=== PATIENT | male | born 1950 | race Caucasian/White ===

== ENCOUNTER 2016-05-16 16:08 | Inpatient (IN) | payer BC ==
--- NOTE | ~2016-05-16 | DS ---
Discharge Summary [facility] [address] [place]. [address] NAME: VERONICA GALEAS : 54 STATUS : DIS IN PAT#: [id number] AGE: 66 ADM/REG DATE : 05/16/16 MR#: [id number] REPORT SERV DATE: 05/24/16 DICTATED BY: ELENI JURADO II DATE: 05/23/16 REPORT STATUS : Draft TRANSCRIBED BY: MODL DATE: 05/23/16 ADMISSION DATE: 05/16/2016 DISCHARGE DATE: 05/23/2016 DISCHARGE DIAGNOSES: 1. Fever with elevated liver function tests, likely cholangitis. 2. Stricture of the choledochojejunostomy site, status post percutaneous transhepatic cholangiography. 3. History of pancreatic cancer, status post Whipple. 4. History of gastroesophageal reflux disease. CONSULTATIONS: Dr. Cummins with GI, and Dr. Kasper with [facility]. PROCEDURES: Percutaneous transhepatic cholangiogram with internal/external biliary drain placement performed by Dr. Frias. BRIEF HPI: The patient is a 66-year-old male with the above history, presented to [facility] due to fever and pruritus. For detailed history and physical examination, please see Renetta Larson's note from 05/16/2016. HOSPITAL COURSE: On admission, the patient had a mildly elevated procalcitonin of 0.7 with a normal white count; however, his T-bili was 5.5, alkaline phosphatase 531, ALT 201, and AST 86. He had complained of an episode of fever of 102.3 prior to admission, but no fever was observed during his hospitalization. He was started on Zosyn. GI was consulted. CT of the patient's abdomen showed minimal fullness of the biliary tree with gas seen in the intrahepatic bile ducts on the left and within the common bile duct, likely related to the patient's postsurgical anatomy. Otherwise, stable [id number] left hydronephrosis secondary to chronic left UPJ obstruction, and stable nonobstructive nephrolithiasis of the lower pole of the left kidney. MRCP was done, which showed mild dilatation of the intrahepatic biliary tree and the upper common bile duct. There is signal deficit below this in the common duct, likely due to the air in the common duct seen on recent exam. The choledochojejunostomy site is not optimally evaluated. Nondilated pancreatic duct with known stent in the pancreatic duct extending into the jejunum across the pancreaticojejunostomy site. Dr. Praneeth Cummins performed an upper endoscopy with removal of the patient's jejunal stents prior to PTC. The PTC showed tight stricturing of the choledochojejunostomy site just below the proximal common duct as described with only tiny amount of contrast tracking into the jejunum. After successfully crossing the stenotic choledochojejunostomy site with the micro catheter, subsequent 4-Welsh catheter, a 10- Welsh internal-external biliary drain was placed within the distal loop formed in the jejunum. The patient's alkaline phosphatase steadily trended down to 244. AST and ALT had trended down before briefly trending up after the patient's stent was removed and then after the PTC, trended back down to 191, similar trend with AST. The patient experienced a significant amount of pain and muscle spasm at the insertion site; however, no abdominal pain. At this point, he is stable for discharge and Dr. Cummins will follow him up in two months. We will continue antibiotics for a total of 14 days. Currently, he has had 7 days of Zosyn and will continue oral Levaquin as an outpatient. Discharge Summary [address] [address] NAME: VERONICA GALEAS : 54 STATUS : DIS IN PAT#: [id number] AGE: 66 ADM/REG DATE : 05/16/16 MR#: [id number] REPORT SERV DATE: 05/24/16 DICTATED BY: ELENI JURADO II DATE: 05/23/16 REPORT STATUS : Draft TRANSCRIBED BY: KENYATTA DATE: 05/23/16 DISCHARGE MEDICATIONS: 1. Welchol 3.75 g p.o. daily. 2. Protonix 40 mg p.o. daily. 3. Levaquin 750 mg p.o. daily x7 days. 4. Creon 53198 units p.o. at meals and p.r.n. large fatty meals. 5. Benadryl p.r.n. 6. Advil p.r.n. 7. Atarax 25 mg p.o. t.i.d. p.r.n. pruritus. DISCHARGE INSTRUCTIONS: The patient will be discharged home. Follow up with Dr. Cummins in two weeks. JACKIE/DANIELLEL Eleni Jurado II, MD / [id number] CC: MD Jay Avila II, M.D.
--- NOTE | ~2016-05-16 | CN ---
Consultation Report [facility] [address] [place]. [address] NAME: VERONICA GALEAS : 54 STATUS : ADM IN [facility]#: [id number] AGE: 66 ADM/REG DATE : 05/16/16 MR#: [id number] REPORT SERV DATE: 05/17/16 DICTATED BY: BILL AZAR DATE: 05/17/16 REPORT STATUS : Draft TRANSCRIBED BY: MODNneka DATE: 05/17/16 GI CONSULTATION DATE OF CONSULTATION: 05/17/2016 REASON FOR CONSULTATION: Regarding elevated liver tests. HISTORY OF PRESENT ILLNESS: This is a pleasant 66-year-old man, who is status post Whipple procedure in 2016 for pancreatic cancer. He has been undergoing recent chemotherapy and has had elevated liver tests in the past one month. In addition, he has had intermittent spiking fevers up to 102 Fahrenheit. He was given antibiotics with resolution. He has had no abdominal pain. Stools have been normal, although lilo collared. No GERD or dysphagia. He has seen Dr. Cummins in the past for metal stent to common bile duct, which was placed preoperatively. He does not use significant amounts of alcohol, very occasional drinker, although he did drink heavily in the past for about five years, thirteen years ago, but not much alcohol since. No new medications other than chemotherapy. ALLERGIES: DEMEROL. MEDICATIONS: Xeloda, Welchol, Benadryl, Atarax, Advil, Levaquin, Creon, Protonix, Gemzar. PAST MEDICAL HISTORY: Pancreatic cancer, status post Whipple procedure as above, GERD, hernia repair, left knee surgery x2 bilateral. SOCIAL HISTORY: Does not use alcohol or tobacco significantly. FAMILY HISTORY: Negative for GI malignancy. REVIEW OF SYSTEMS: A complete review of systems was obtained and negative except that noted in the history of present illness. PHYSICAL EXAMINATION: VITAL SIGNS: He is afebrile. Temperature is 98.0, pulse 58, respirations 16, blood pressure 102/59. HEENT: Sclerae anicteric. NECK: Supple without lymphadenopathy. Pharynx is pink without exudate. LUNGS: Clear to auscultation bilaterally. HEART: Regular rate and rhythm. S1, S2 are heard without rubs or gallops. ABDOMEN: Normal bowel sounds. Belly is soft, nontender, nondistended without hepatosplenomegaly. EXTREMITIES: No pedal edema or rash. Consultation Report [facility] [address] [place]. [address] NAME: VERONICA GALEAS : [birth year] STATUS : ADM IN [facility]#: [id number] AGE: 66 ADM/REG DATE : 05/16/16 MR#: [id number] REPORT SERV DATE: 05/17/16 DICTATED BY: BILL AZAR DATE: 05/17/16 REPORT STATUS : Draft TRANSCRIBED BY: MODL DATE: 05/17/16 NEUROLOGIC: Alert and oriented without focal deficit. Muscle exam is nontender. DATA: White blood cell count 2.8, hematocrit 32.8, MCV 92.7, platelets 146. BUN 12, creatinine 0.62. Bilirubin was initially 5.5, now 3.1. Alkaline phosphatase initially 531, now 427. ALT initially 201, now 148, AST initially 86 now 54. LDH is 185. CT scan shows a normal appearing pancreas with PD stent in place. Intrahepatic ducts are full. There is air within the biliary tree and a choledochojejunostomy is noted. IMPRESSION: 1. Elevated liver tests. Question intrinsic versus sludge/stones at the site of choledochojejunostomy. 2. Pancreatic cancer, status post Whipple procedure, currently receiving chemotherapy. RECOMMENDATIONS: 1. Check acute hepatitis panel. 2. Check MRCP. 3. If the above is negative, consider further serologic testing on liver. CC/KENYATTA Bill Azar M.D. / [id number] CC: MD Jay Max M.D. Gregory Olds, MD
--- NOTE | ~2016-05-16 | HP ---
History And Physical [facility] [id number] [place]. [address] NAME: VERONICA GALEAS : 54 STATUS : ADM IN [facility]#: [id number] AGE: 66 ADM/REG DATE : 05/16/16 MR#: [id number] REPORT SERV DATE: 05/16/16 DICTATED BY: SKYLER LARSON DATE: 05/16/16 REPORT STATUS : Draft TRANSCRIBED BY: MODNneka DATE: 05/16/16 DATE OF ADMISSION: 05/16/2016 CHIEF COMPLAINT: Fever and pruritus. HISTORY OF PRESENT ILLNESS: This patient is a 66-year-old patient who is a direct admit from Dr. Jain's office. The patient does present with a history of pancreatic cancer. He is under the care of Dr. Jain's of [facility]. He is currently under a clinical trial. Last chemotherapy on 05/13/2016. At that time, he received Gemzar and Xeloda. This patient reports a history of low-grade fevers ongoing for approximately three weeks. During that time, temperature ran from 99 to 100, had also noted elevated liver function tests. The patient states on 04/25/2016, he was given Levaquin for approximately days. He did complete the antibiotic during that time and ongoing. He has continued to run low-grade fevers. Today's temperature was 102 with rigors. The patient states that his weakness has come and gone during that time. He also denies fever, chills, nausea, vomiting, abdominal pain, or diarrhea. He does state though that within the past one to two days, he has had increased pruritus. He has stated that he is taking Benadryl, which is not relieving his symptoms. REVIEW OF SYSTEMS: Otherwise negative review of systems except what is listed above. PAST MEDICAL HISTORY: 1. Pancreatic cancer. 2. GERD. PAST SURGICAL HISTORY: 1. Hernia repair. 2. Left knee surgery x2. 3. Bilateral biliary sten, 10/2015. 4. Whipple's 11/2015. SOCIAL HISTORY: The patient is , one son. Continues to work full-time. Denies smoking, alcohol, or illicit drug use. ALLERGIES: NO KNOWN DRUG ALLERGIES. FAMILY HISTORY: Mother at age 60 of lung cancer. Father of lung cancer. HOME MEDICATIONS: 1. Xeloda 500 mg and 1500 mg p.o. twice daily. 2. Welchol 3.75 g pack p.o. daily. 3. Benadryl 25 mg one p.o. twice daily. 4. Hydralazine 25 mg one p.o. every eight hours. 5. Advil 200 mg and 400 mg p.o. twice daily. History And Physical [address] [address] NAME: VERONICA GALEAS : 54 STATUS : ADM IN [facility]#: [id number] AGE: 66 ADM/REG DATE : 05/16/16 MR#: [id number] REPORT SERV DATE: 05/16/16 DICTATED BY: SKYLER LARSON DATE: 05/16/16 REPORT STATUS : Draft TRANSCRIBED BY: KENYATTA DATE: 05/16/16 6. Levaquin 750 mg one p.o. daily to start today. 7. Creon 3000 units and 12,000 units p.o. with meals. 8. Protonix 40 mg one p.o. daily. 9. Gemzar 1 dose IV every two weeks. PHYSICAL EXAMINATION: VITAL SIGNS: To be obtained. GENERAL: This patient is alert and oriented, in no acute distress. NEUROLOGIC: The patient is alert and oriented x3. CHEST: Nontender to touch. NECK: No JVD. LUNGS: Clear bilateral. No wheezes, rales, or rhonchi. HEART: Rate and regular rhythm. No murmurs, rubs, or gallops. ABDOMEN: Soft, nontender to touch. Bowel sounds are active. EXTREMITIES : No cyanosis, no edema. LABORATORY DATA: Laboratory data obtained in Dr. Jain's office. WBC is 3.6, hemoglobin 12.3, hematocrit 35.5, platelet count is 119. Creatinine is 0.60, BUN is 13, potassium is 3.8. ALT is 233, AST is 134, and total bilirubin is 6.2. IMAGING: To be obtained. ASSESSMENT AND PLAN: 1. Fever of unknown origin. The patient reports temperature on and off for approximately three weeks. Temperature this a.m. was 102. The patient has been admitted to the hospital. We will obtain cultures and begin Zosyn. Antibiotic will be started. The patient will be started on Zosyn. Cultures and lab will be obtained. The patient will be started on Zosyn. 2. Possible partial obstruction. The patient has known pancreatic cancer. He has had stents in the past. We will have consult for Dr. Cummins to see for possible obstruction. 3. Pancreatic cancer. The patient is followed by Dr. Jain of [place]. We will consult him to see during his hospital stay. We will also obtain an updated CT chest, abdomen, and pelvis. 4. Pruritus, most likely due to elevated bilirubin. We will provide Benadryl and hydralazine p.r.n. as needed for the patient's symptoms. 5. The patient is a full code. 6. The patient will be followed by Dr. Todd Snow during his hospital stay. DICTATION ENDS HERE PRECIOUS/KENYATTA Skyler Larson NP / [id number] History And Physical [address] [address] NAME: VERONICA GALEAS : 54 STATUS : ADM IN [facility]#: [id number] AGE: 66 ADM/REG DATE : 05/16/16 MR#: [id number] REPORT SERV DATE: 05/16/16 DICTATED BY: SKYLER LARSON DATE: 05/16/16 REPORT STATUS : Draft TRANSCRIBED BY: KENYATTA DATE: 05/16/16 CC: MD Jay Max M.D.
--- NOTE | ~2016-05-16 | EGD ---
EGD REPORT [facility] [address] [place] [address] NAME: VERONICA GALEAS : 54 STATUS : ADM IN PAT#: [id number] AGE: 66 ADM/REG DATE : 05/16/16 MR#: [id number] REPORT SERV DATE: 05/20/16 DICTATED BY: CLAUDIA MCDONALD DATE: 05/20/16 REPORT STATUS : Draft TRANSCRIBED BY: [employer] DATE: 05/20/16 Endoscopy Center Patient Name: Veronica Galeas Date of : 1950 Attending MD: CLAUDIA MCDONALD, Procedure Date No Time: 05/20/2016 Procedure: Upper GI endoscopy Indications: Stent removal Referring MD: ELENA GRANDE Medicines: Monitored Anesthesia Care Complications: No immediate complications. Estimated blood loss: None. Procedure: Pre-Anesthesia Assessment: - ASA Grade Assessment: III - A patient with severe systemic disease. After obtaining informed consent, the endoscope was passed under direct vision. Throughout the procedure, the patient's blood pressure, pulse, and oxygen saturations were monitored continuously. The PCF [id number] was introduced through the mouth, and advanced to the afferent jejunal loop. The upper GI endoscopy was accomplished without difficulty. The patient tolerated the procedure well. Findings: The esophagus was normal. Evidence of a Billroth II (Whipple) anastomosis was found in the gastric antrum. The anastomosis was characterized by healthy appearing mucosa. A pancreatic stent was seen in the jejunum. Stent removal was accomplished with rat-toothed forceps. Verification of patient identification for the specimen was done. Exam of the jejunum was otherwise normal.Both limbs were evaluated. Impression: - Normal esophagus. - A Billroth II anastomosis was found, anastomosis characterized by healthy appearing mucosa. - Jejunal stents. Recommendation: - Return to previous diet. - Continue present medications. Procedure Code(s): --- Professional --- 44724, Esophagogastroduodenoscopy, flexible, transoral; with removal of foreign body Diagnosis Code(s): --- Professional --- EGD REPORT [address] [place] [place]. [address] NAME: VERONICA GALEAS : [birth year] STATUS : ADM IN [facility]#: [id number] AGE: 66 ADM/REG DATE : 05/16/16 MR#: [id number] REPORT SERV DATE: 05/20/16 DICTATED BY: CLAUDIA MCDONALD DATE: 05/20/16 REPORT STATUS : Draft TRANSCRIBED BY: [employer] DATE: 05/20/16 Z98.0, Intestinal bypass and anastomosis status Z46.59, Encounter for fitting and adjustment of other gastrointestinal appliance and device CPT copyright 2013 [employer]. All rights reserved. The codes documented in this report are preliminary and upon learning and development analyst review may be revised to meet current compliance requirements. CLAUDIA MCDONALD, 05/20/2016 1:34 PM Number of Addenda: 0 Note Initiated On: 05/20/2016 12:33 PM Scope Withdrawal Time 0 hours 0 minutes [address] [place] [address] [place] [address]
[~2016-05-16 16:08] MED LIST: ADVIL PO; ASABAYER PO; LUTEIN1 CAP PO; [UNRECOGNIZED DRUG - OTHER]; [UNRECOGNIZED DRUG - OTHER]
[2016-05-16] MEDS ORDERED: XELODA PO (17:05)
[2016-05-16] MEDS ORDERED: GEMZAR IV (17:06)
[2016-05-16] MEDS ORDERED: CREON DR 3,0001 EACH PO ×2 (17:07→17:08)
[2016-05-16] MEDS ORDERED: BEN25 PO (17:08)
[2016-05-16] MEDS ORDERED: PROTONIX PO (17:09)
[2016-05-16] MEDS ORDERED: ADVIL PO (17:09)
[2016-05-16] MEDS ORDERED: LEVAQUIN750 MG PO (17:10)
[2016-05-16] MEDS ORDERED: WELCHOL3.75 GM PO (17:11)
[2016-05-16] MEDS ORDERED: AT25 PO (17:11)
[2016-05-16 20:28] LABS: BASOPHILS 0.2 %; BASOPHILS ABSOLUTE 0.01 10/3/uL (0.0-0.16); EOSINOPHILS 0.5 %; EOSINOPHILS ABSOLUTE 0.03 10/3/uL (0.0-0.53); HEMOGLOBIN 12.4 g/dL (13.6-17.8); IMMATURE GRANULOCYTES 0.3 %; IMMATURE GRANULOCYTES ABSOLUTE 0.02 10/3/uL (0.0-0.11); LYMPHOCYTES ABSOLUTE 0.54 10/3/uL (0.67-4.30); MEAN CORPUS HGB CONC 34.1 g/dL (32.0-36.0); MEAN CORPUSCULAR HEMOGLOB 31.5 pg (26.0-34.0); MEAN CORPUSCULAR VOLUME 92.4 fL (80-100); MEAN PLATELET VOLUME 11.2 fL (9.2-13.0); MONOCYTES 1.7 %; NEUTROPHILS 88.3 %; NEUTROPHILS ABSOLUTE 5.31 10/3/uL (2.02-8.40); PLATELET COUNT 176 10/3/uL (150-400); RBC DISTRIBUTION WIDTH 16.2 % (12.0-16.0); RED CELL COUNT 3.94 10/6/uL (4.7-6.1)
[2016-05-16 20:36] LABS: HEMATOCRIT 36.4 % (40.0-51.0); MANUAL DIFF NO %
[2016-05-16 20:53] LABS: A/G RATIO 0.9 (0.7-1.9); ALBUMIN 3.3 G/DL (3.5-5.0); ALKALINE PHOSPHATASE 531 U/L (45-117); BUN (BLOOD UREA NITROGEN) 12 MG/DL (6-23); CALCIUM, SERUM 9.2 MG/DL (8.5-10.4); CHLORIDE, SERUM 107 MMOL/L (96-112); CO2 (CARBON DIOXIDE) 28 MMOL/L (24-34); CREATININE 0.67 MG/DL (0.70-1.30); GFR AFRICAN AMERICAN 118 ML/MIN (>=60); GFR NON AFRICAN AMERICAN 102 ML/MIN (>=60); GLOBULIN 3.5 G/DL (2.5-4.1); GLUCOSE, SERUM 111 MG/DL (60-99); PHOSPHORUS, SERUM 2.8 MG/DL (2.5-4.5); POTASSIUM, SERUM 3.7 MMOL/L (3.5-5.3); SGOT(AST) 86 U/L (5-40); SGPT(ALT) 201 U/L (5-65); SODIUM, SERUM 142 MMOL/L (135-148); TOTAL BILIRUBIN 5.5 MG/DL (0-1.2); TOTAL PROTEIN 6.8 G/DL (6.0-8.5)
[2016-05-17 08:29] LABS: HEMATOCRIT 32.8 % (40.0-51.0); HEMOGLOBIN 10.9 g/dL (13.6-17.8); MEAN CORPUS HGB CONC 33.2 g/dL (32.0-36.0); MEAN CORPUSCULAR HEMOGLOB 30.8 pg (26.0-34.0); MEAN CORPUSCULAR VOLUME 92.7 fL (80-100); MEAN PLATELET VOLUME 11.2 fL (9.2-13.0); PLATELET COUNT 146 10/3/uL (150-400); RED CELL COUNT 3.54 10/6/uL (4.7-6.1); WHITE BLOOD CELLS 2.8 10/3/uL (4.5-10.5)
[2016-05-17 08:30] LABS: MANUAL DIFF YES %
[2016-05-17 08:47] LABS: A/G RATIO 0.9 (0.7-1.9); ALBUMIN 2.7 G/DL (3.5-5.0); BUN (BLOOD UREA NITROGEN) 12 MG/DL (6-23); CALCIUM, SERUM 8.5 MG/DL (8.5-10.4); CHLORIDE, SERUM 111 MMOL/L (96-112); CO2 (CARBON DIOXIDE) 24 MMOL/L (24-34); CREATININE 0.62 MG/DL (0.70-1.30); GFR AFRICAN AMERICAN 122 ML/MIN (>=60); GFR NON AFRICAN AMERICAN 105 ML/MIN (>=60); GLUCOSE, SERUM 120 MG/DL (60-99); POTASSIUM, SERUM 3.7 MMOL/L (3.5-5.3); SGOT(AST) 54 U/L (5-40); SGPT(ALT) 148 U/L (5-65); SODIUM, SERUM 144 MMOL/L (135-148); TOTAL PROTEIN 5.7 G/DL (6.0-8.5)
[2016-05-17 08:50] LABS: ALKALINE PHOSPHATASE 427 U/L (45-117); TOTAL BILIRUBIN 3.1 MG/DL (0-1.2)
[2016-05-17 09:25] LABS: BAND NEUTROPHILS 3 %; EOSINOPHILS 4 %; EOSINOPHILS ABSOLUTE (CALC) 0.11 10/3/uL (0.0-0.53); LYMPHOCYTES 19 %; LYMPHOCYTES ABSOLUTE (CALC) 0.53 10/3/uL (0.67-4.30); MONOCYTES 3 %; MONOCYTES ABSOLUTE (CALC) 0.08 10/3/uL (0.21-1.20); NEUTROPHILS ABSOLUTE (CALC) 2.07 10/3/uL (2.02-8.40); PLATELET ESTIMATE SLT DEC (ADEQUATE); RBC MORPHOLOGY NORM (NORMAL); SEGMENTED NEUTROPHIL (0) 71 %; TOTAL NUCLEATED CELLS 100
[2016-05-17 19:52] LABS: WBC (NOT ORDERED) (RFLEX) 0 (0-5)
[2016-05-17 20:05] LABS: ASCORBIC ACID (UR NOT ORDER) NEG (NEG); BILIRUBIN, URINE NEGATIVE (NEG); KETONE, URINE NEGATIVE (NEG); LEUKOCYTE ESTERASE(NOT OR NEG (NEG)
[2016-05-18 06:59] LABS: BASOPHILS 0.6 %; BASOPHILS ABSOLUTE 0.02 10/3/uL (0.0-0.16); EOSINOPHILS 7.7 %; EOSINOPHILS ABSOLUTE 0.26 10/3/uL (0.0-0.53); HEMOGLOBIN 10.6 g/dL (13.6-17.8); IMMATURE GRANULOCYTES 0.6 %; IMMATURE GRANULOCYTES ABSOLUTE 0.02 10/3/uL (0.0-0.11); LYMPHOCYTES 34.7 %; LYMPHOCYTES ABSOLUTE 1.17 10/3/uL (0.67-4.30); MEAN CORPUS HGB CONC 34.2 g/dL (32.0-36.0); MEAN CORPUSCULAR HEMOGLOB 31.5 pg (26.0-34.0); MEAN CORPUSCULAR VOLUME 92.3 fL (80-100); MEAN PLATELET VOLUME 10.4 fL (9.2-13.0); MONOCYTES 3.9 %; MONOCYTES ABSOLUTE 0.13 10/3/uL (0.21-1.20); NEUTROPHILS 52.5 %; NEUTROPHILS ABSOLUTE 1.77 10/3/uL (2.02-8.40); PLATELET COUNT 144 10/3/uL (150-400); RBC DISTRIBUTION WIDTH 15.8 % (12.0-16.0); RED CELL COUNT 3.36 10/6/uL (4.7-6.1); WHITE BLOOD CELLS 3.4 10/3/uL (4.5-10.5)
[2016-05-18 07:01] LABS: MANUAL DIFF NO %
[2016-05-18 07:10] LABS: A/G RATIO 0.9 (0.7-1.9); ALBUMIN 2.6 G/DL (3.5-5.0); ALKALINE PHOSPHATASE 372 U/L (45-117); BUN (BLOOD UREA NITROGEN) 11 MG/DL (6-23); CALCIUM, SERUM 8.4 MG/DL (8.5-10.4); CHLORIDE, SERUM 110 MMOL/L (96-112); CO2 (CARBON DIOXIDE) 25 MMOL/L (24-34); CREATININE 0.63 MG/DL (0.70-1.30); GFR AFRICAN AMERICAN 121 ML/MIN (>=60); GFR NON AFRICAN AMERICAN 104 ML/MIN (>=60); GLOBULIN 2.9 G/DL (2.5-4.1); GLUCOSE, SERUM 95 MG/DL (60-99); POTASSIUM, SERUM 3.8 MMOL/L (3.5-5.3); SGOT(AST) 42 U/L (5-40); SGPT(ALT) 118 U/L (5-65); SODIUM, SERUM 146 MMOL/L (135-148); TOTAL BILIRUBIN 1.5 MG/DL (0-1.2); TOTAL PROTEIN 5.5 G/DL (6.0-8.5)
[2016-05-19 07:12] LABS: BASOPHILS 0.6 %; BASOPHILS ABSOLUTE 0.02 10/3/uL (0.0-0.16); EOSINOPHILS ABSOLUTE 0.17 10/3/uL (0.0-0.53); HEMATOCRIT 31.1 % (40.0-51.0); HEMOGLOBIN 10.6 g/dL (13.6-17.8); IMMATURE GRANULOCYTES 1.2 %; IMMATURE GRANULOCYTES ABSOLUTE 0.04 10/3/uL (0.0-0.11); LYMPHOCYTES 37.6 %; LYMPHOCYTES ABSOLUTE 1.29 10/3/uL (0.67-4.30); MANUAL DIFF NO %; MEAN CORPUS HGB CONC 34.1 g/dL (32.0-36.0); MEAN CORPUSCULAR HEMOGLOB 31.5 pg (26.0-34.0); MEAN CORPUSCULAR VOLUME 92.6 fL (80-100); MEAN PLATELET VOLUME 10.8 fL (9.2-13.0); MONOCYTES 6.7 %; MONOCYTES ABSOLUTE 0.23 10/3/uL (0.21-1.20); NEUTROPHILS 48.9 %; NEUTROPHILS ABSOLUTE 1.68 10/3/uL (2.02-8.40); PLATELET COUNT 145 10/3/uL (150-400); RBC DISTRIBUTION WIDTH 15.4 % (12.0-16.0); RED CELL COUNT 3.36 10/6/uL (4.7-6.1); WHITE BLOOD CELLS 3.4 10/3/uL (4.5-10.5)
[2016-05-19 07:30] LABS: ALBUMIN 2.7 G/DL (3.5-5.0); ALKALINE PHOSPHATASE 335 U/L (45-117); BUN (BLOOD UREA NITROGEN) 11 MG/DL (6-23); CALCIUM, SERUM 8.7 MG/DL (8.5-10.4); CHLORIDE, SERUM 111 MMOL/L (96-112); CO2 (CARBON DIOXIDE) 26 MMOL/L (24-34); CREATININE 0.75 MG/DL (0.70-1.30); GFR AFRICAN AMERICAN 112 ML/MIN (>=60); GFR NON AFRICAN AMERICAN 97 ML/MIN (>=60); GLOBULIN 2.8 G/DL (2.5-4.1); GLUCOSE, SERUM 103 MG/DL (60-99); POTASSIUM, SERUM 3.7 MMOL/L (3.5-5.3); SGOT(AST) 47 U/L (5-40); SGPT(ALT) 111 U/L (5-65); SODIUM, SERUM 146 MMOL/L (135-148); TOTAL PROTEIN 5.5 G/DL (6.0-8.5)
[2016-05-19 11:18] LABS: HEPATITIS B CORE AB IGM NON-REACTIVE (NON-REAC); HEPATITIS C ANTIBODY NON-REACTIVE (NON-REACT)
[2016-05-19 11:22] LABS: HEPATITIS B SURFACE ANTIGEN NON-REACTIVE (NON-REACT)
[2016-05-19 11:42] LABS: HEP A ANTIBODY IGM NON-REACTIVE (NON-REACT)
[2016-05-20 06:11] LABS: HEMATOCRIT 31.5 % (40.0-51.0); HEMOGLOBIN 10.6 g/dL (13.6-17.8); MEAN CORPUS HGB CONC 33.7 g/dL (32.0-36.0); MEAN CORPUSCULAR HEMOGLOB 30.6 pg (26.0-34.0); PLATELET COUNT 132 10/3/uL (150-400); RBC DISTRIBUTION WIDTH 15.5 % (12.0-16.0); RED CELL COUNT 3.46 10/6/uL (4.7-6.1); WHITE BLOOD CELLS 2.5 10/3/uL (4.5-10.5)
[2016-05-20 06:12] LABS: MANUAL DIFF YES %
[2016-05-20 06:27] LABS: A/G RATIO 0.9 (0.7-1.9); ALBUMIN 2.6 G/DL (3.5-5.0); ALKALINE PHOSPHATASE 335 U/L (45-117); BUN (BLOOD UREA NITROGEN) 11 MG/DL (6-23); CALCIUM, SERUM 8.6 MG/DL (8.5-10.4); CHLORIDE, SERUM 113 MMOL/L (96-112); CO2 (CARBON DIOXIDE) 25 MMOL/L (24-34); CREATININE 0.74 MG/DL (0.70-1.30); GFR AFRICAN AMERICAN 113 ML/MIN (>=60); GFR NON AFRICAN AMERICAN 97 ML/MIN (>=60); GLUCOSE, SERUM 99 MG/DL (60-99); POTASSIUM, SERUM 3.7 MMOL/L (3.5-5.3); SGOT(AST) 76 U/L (5-40); SGPT(ALT) 138 U/L (5-65); SODIUM, SERUM 146 MMOL/L (135-148); TOTAL BILIRUBIN 0.9 MG/DL (0-1.2); TOTAL PROTEIN 5.6 G/DL (6.0-8.5)
[2016-05-20 06:42] LABS: BAND NEUTROPHILS 2 %; BASOPHILS 2 %; BASOPHILS ABSOLUTE (CALC) 0.05 10/3/uL (0.0-0.16); EOSINOPHILS 5 %; EOSINOPHILS ABSOLUTE (CALC) 0.13 10/3/uL (0.0-0.53); IMMATURE GRANS ABSOLUTE (CALC) 0.18 10/3/uL (0.0-0.11); LYMPHOCYTES 43 %; LYMPHOCYTES ABSOLUTE (CALC) 1.08 10/3/uL (0.67-4.30); METAMYELOCYTES 5 %; MONOCYTES 2 %; MONOCYTES ABSOLUTE (CALC) 0.05 10/3/uL (0.21-1.20); MYELOCYTES 2 %; NEUTROPHILS ABSOLUTE (CALC) 1.03 10/3/uL (2.02-8.40); PLATELET ESTIMATE SLT DEC (ADEQUATE); POLYCHROMASIA 1+ (2-5/OIF) (0-1/OIF); SEGMENTED NEUTROPHIL (0) 39 %; TOTAL NUCLEATED CELLS 100
[2016-05-21 04:45] LABS: BASOPHILS 0.3 %; BASOPHILS ABSOLUTE 0.01 10/3/uL (0.0-0.16); EOSINOPHILS 3.9 %; EOSINOPHILS ABSOLUTE 0.14 10/3/uL (0.0-0.53); HEMATOCRIT 32.6 % (40.0-51.0); HEMOGLOBIN 11.2 g/dL (13.6-17.8); IMMATURE GRANULOCYTES 2.2 %; IMMATURE GRANULOCYTES ABSOLUTE 0.08 10/3/uL (0.0-0.11); LYMPHOCYTES 29.2 %; LYMPHOCYTES ABSOLUTE 1.06 10/3/uL (0.67-4.30); MEAN CORPUS HGB CONC 34.4 g/dL (32.0-36.0); MEAN CORPUSCULAR HEMOGLOB 31.6 pg (26.0-34.0); MEAN CORPUSCULAR VOLUME 92.1 fL (80-100); MEAN PLATELET VOLUME 10.8 fL (9.2-13.0); MONOCYTES 9.6 %; MONOCYTES ABSOLUTE 0.35 10/3/uL (0.21-1.20); NEUTROPHILS 54.8 %; NEUTROPHILS ABSOLUTE 1.99 10/3/uL (2.02-8.40); PLATELET COUNT 129 10/3/uL (150-400); RBC DISTRIBUTION WIDTH 15.4 % (12.0-16.0); RED CELL COUNT 3.54 10/6/uL (4.7-6.1)
[2016-05-21 04:46] LABS: MANUAL DIFF NO %; WHITE BLOOD CELLS 3.6 10/3/uL (4.5-10.5)
[2016-05-21 05:17] LABS: ALBUMIN 2.8 G/DL (3.5-5.0); ALKALINE PHOSPHATASE 312 U/L (45-117); BUN (BLOOD UREA NITROGEN) 13 MG/DL (6-23); CALCIUM, SERUM 8.4 MG/DL (8.5-10.4); CHLORIDE, SERUM 112 MMOL/L (96-112); CO2 (CARBON DIOXIDE) 25 MMOL/L (24-34); CREATININE 0.74 MG/DL (0.70-1.30); GFR AFRICAN AMERICAN 113 ML/MIN (>=60); GFR NON AFRICAN AMERICAN 97 ML/MIN (>=60); GLOBULIN 2.8 G/DL (2.5-4.1); GLUCOSE, SERUM 121 MG/DL (60-99); POTASSIUM, SERUM 3.8 MMOL/L (3.5-5.3); SGOT(AST) 106 U/L (5-40); SGPT(ALT) 175 U/L (5-65); SODIUM, SERUM 144 MMOL/L (135-148); TOTAL BILIRUBIN 0.8 MG/DL (0-1.2); TOTAL PROTEIN 5.6 G/DL (6.0-8.5)
[2016-05-22 06:07] LABS: BASOPHILS 0.2 %; BASOPHILS ABSOLUTE 0.01 10/3/uL (0.0-0.16); EOSINOPHILS 2.7 %; EOSINOPHILS ABSOLUTE 0.15 10/3/uL (0.0-0.53); HEMATOCRIT 34.5 % (40.0-51.0); HEMOGLOBIN 11.7 g/dL (13.6-17.8); IMMATURE GRANULOCYTES 0.4 %; IMMATURE GRANULOCYTES ABSOLUTE 0.02 10/3/uL (0.0-0.11); LYMPHOCYTES 11.4 %; LYMPHOCYTES ABSOLUTE 0.64 10/3/uL (0.67-4.30); MEAN CORPUS HGB CONC 33.9 g/dL (32.0-36.0); MEAN CORPUSCULAR HEMOGLOB 31.6 pg (26.0-34.0); MEAN CORPUSCULAR VOLUME 93.2 fL (80-100); MEAN PLATELET VOLUME 10.9 fL (9.2-13.0); MONOCYTES 11.4 %; MONOCYTES ABSOLUTE 0.64 10/3/uL (0.21-1.20); NEUTROPHILS 73.9 %; NEUTROPHILS ABSOLUTE 4.14 10/3/uL (2.02-8.40); PLATELET COUNT 113 10/3/uL (150-400)
[2016-05-22 06:08] LABS: MANUAL DIFF NO %; WHITE BLOOD CELLS 5.6 10/3/uL (4.5-10.5)
[2016-05-22 06:22] LABS: ALBUMIN 2.9 G/DL (3.5-5.0); BUN (BLOOD UREA NITROGEN) 12 MG/DL (6-23); CALCIUM, SERUM 8.7 MG/DL (8.5-10.4); CHLORIDE, SERUM 105 MMOL/L (96-112); CO2 (CARBON DIOXIDE) 28 MMOL/L (24-34); CREATININE 0.77 MG/DL (0.70-1.30); GFR AFRICAN AMERICAN 111 ML/MIN (>=60); GFR NON AFRICAN AMERICAN 96 ML/MIN (>=60); GLUCOSE, SERUM 109 MG/DL (60-99); POTASSIUM, SERUM 3.8 MMOL/L (3.5-5.3); SGOT(AST) 124 U/L (5-40); SGPT(ALT) 224 U/L (5-65); SODIUM, SERUM 140 MMOL/L (135-148); TOTAL BILIRUBIN 1.1 MG/DL (0-1.2); TOTAL PROTEIN 5.9 G/DL (6.0-8.5)
[2016-05-22 06:23] LABS: ALKALINE PHOSPHATASE 297 U/L (45-117)
[2016-05-23 07:57] LABS: BASOPHILS 0.2 %; BASOPHILS ABSOLUTE 0.01 10/3/uL (0.0-0.16); EOSINOPHILS 4.3 %; EOSINOPHILS ABSOLUTE 0.23 10/3/uL (0.0-0.53); HEMATOCRIT 33.1 % (40.0-51.0); HEMOGLOBIN 11.3 g/dL (13.6-17.8); IMMATURE GRANULOCYTES 0.7 %; IMMATURE GRANULOCYTES ABSOLUTE 0.04 10/3/uL (0.0-0.11); LYMPHOCYTES 16.1 %; LYMPHOCYTES ABSOLUTE 0.86 10/3/uL (0.67-4.30); MEAN CORPUS HGB CONC 34.1 g/dL (32.0-36.0); MEAN CORPUSCULAR VOLUME 90.9 fL (80-100); MEAN PLATELET VOLUME 10.5 fL (9.2-13.0); MONOCYTES 13.7 %; MONOCYTES ABSOLUTE 0.73 10/3/uL (0.21-1.20); NEUTROPHILS ABSOLUTE 3.47 10/3/uL (2.02-8.40); PLATELET COUNT 124 10/3/uL (150-400); RBC DISTRIBUTION WIDTH 15.4 % (12.0-16.0); RED CELL COUNT 3.64 10/6/uL (4.7-6.1); WHITE BLOOD CELLS 5.3 10/3/uL (4.5-10.5)
[2016-05-23 08:00] LABS: MANUAL DIFF NO %
[2016-05-23 08:11] LABS: ALBUMIN 2.7 G/DL (3.5-5.0); BUN (BLOOD UREA NITROGEN) 9 MG/DL (6-23); CALCIUM, SERUM 8.4 MG/DL (8.5-10.4); CHLORIDE, SERUM 106 MMOL/L (96-112); CO2 (CARBON DIOXIDE) 25 MMOL/L (24-34); CREATININE 0.69 MG/DL (0.70-1.30); DIRECT BILIRUBIN 0.5 MG/DL (0.0-0.4); GFR AFRICAN AMERICAN 116 ML/MIN (>=60); GFR NON AFRICAN AMERICAN 100 ML/MIN (>=60); GLUCOSE, SERUM 103 MG/DL (60-99); INDIRECT BILIRUBIN(NOT ORDER) 0.7 MG/DL (0.1-0.9); POTASSIUM, SERUM 3.7 MMOL/L (3.5-5.3); SGOT(AST) 85 U/L (5-40); SGPT(ALT) 191 U/L (5-65); SODIUM, SERUM 142 MMOL/L (135-148); TOTAL BILIRUBIN 1.2 MG/DL (0-1.2); TOTAL PROTEIN 5.9 G/DL (6.0-8.5)
[2016-05-23 08:12] LABS: ALKALINE PHOSPHATASE 244 U/L (45-117)
[2016-05-23] MEDS ORDERED: NORCO1 TAB PO (18:10)
== END 2016-05-23 18:59 | disposition home or self-care (01) | DRG 393 ==
LOC: 4SO 16:08
PROVIDERS: Internal Medicine; Internal Medicine Gastroenterology; Nurse Practitioner Adult Health; Nurse Practitioner Family; Radiology Vascular & Interventional Radiology
PROC: 0DP Gastrointestinal System, Removal (ICD-10-PCS; 2016-05-20)
PROC: BF111ZZ Fluoroscopy of Biliary and Pancreatic Ducts using Low Osmolar Contrast (ICD-10-PCS; principal; 2016-05-21)
PROC: 0F9930Z Drainage of Common Bile Duct with Drainage Device, Percutaneous Approach (ICD-10-PCS; 2016-05-21)
DX: K91.89 Other postprocedural complications and disorders of digestive system (principal); K83.1 Obstruction of bile duct; C25.9 Malignant neoplasm of pancreas, unspecified; K83.0 Cholangitis; N13.1 Hydronephrosis with ureteral stricture, not elsewhere classified; N20.1 Calculus of ureter; K21.9 Gastro-esophageal reflux disease without esophagitis; F10.21 Alcohol dependence, in remission; L29.9 Pruritus, unspecified; R00.1 Bradycardia, unspecified; Z98.0 Intestinal bypass and anastomosis status; Z46.59 Encounter for fitting and adjustment of other gastrointestinal appliance and device
CPT/HCPCS: 47534; 71260; 74177; 74181; 74330; 80048; 80053; 80074; 80076; 81001; 83605; 83615; 83735; 84100; 84145; 85025; 87040; 93005; A9270-GY; C1729; C1769; C1887; C1894; J0330; J1170; J2250; J2405; J2543; J3010; Q9967